=== PATIENT | female | born 1995 | race Caucasian/White ===

== ENCOUNTER 2022-01-12 15:43 | Emergency (ER) | payer MEDICAID ==
[~2022-01-12] VITALS: Ht 160 cm; Wt 100.0 kg
[2022-01-12 15:52] VITALS: TEMP 98.1
[2022-01-12 17:00] LABS: HEMATOCRIT 44.3 % (37.0-47.0); MEAN CELL VOLUME 86 fl (80.0-100.0); MEAN CORPUSCULAR HEMOGLOBIN 27 pg (27-31); MEAN CORPUSCULAR HGB CONC 32 g/dl (33.0-37.0); MEAN PLATELET VOLUME 10.5 fl (7.4-10.4); PLATELET COUNT 339 K/mm3 (130-400); RED BLOOD COUNT 5.18 M/mm3 (4.10-5.30); REDCELL DISTRIBUTION WIDTH-CV 15.5 % (11.5-14.5)
[2022-01-12 17:19] LABS: ALBUMIN 3.8 gm/dL (3.5-5.0); BILIRUBIN,TOTAL 0.5 mg/dL (0.2-1.2); CALCIUM 9.4 mg/dL (8.4-10.2); CREATININE, serum 0.96 mg/dL (0.57-1.11)
[2022-01-12 17:32] LABS: MONOSCREEN POSITIVE
[2022-01-12 17:39] LABS: ANISOCYTOSIS 1+; BAND 2 % (0-10); NEUTROPHILS 90 % (42.0-75.2); PLATELET ESTIMATE NORMAL (NORMAL)
[2022-01-12] MEDS ORDERED: ZOFRAN ODT4 MG PO (18:41)
[2022-01-12] MEDS ORDERED: OXYCODONE H5 MG/5 ML PO (18:41)
[2022-01-12 19:11] VITALS: BP 137/79; PULSE 118
== END 2022-01-12 19:11 | disposition home or self-care (01) ==
LOC: COL.ER 15:43
PROVIDERS: Personal Emergency Response Attendant
DX: B27.90 Infectious mononucleosis, unspecified without complication (principal); D72.829 Elevated white blood cell count, unspecified; Z28.310 Unvaccinated for COVID-19
CPT/HCPCS: J0696; J1100; J2405